=== PATIENT | male | born 1970 | race Caucasian/White ===

== ENCOUNTER 2021-07-19 18:47 | Inpatient (IN) ==
[2021-07-19 19:14] LABS: Basophils # 0.1 K/mcL (0.0-0.2); Basophils % 0.4 %; Eosinophils % 0.3 %; Hematocrit 44.9 % (37.5-50.1); Hemoglobin 15.2 g/dL (12.9-16.9); Immature Granulocytes % 2.8 % (0-4); Lymphocytes % 7.5 %; Mean Corpuscular HGB Conc 33.9 g/dL (31.6-35.5); Mean Corpuscular Hemoglobin 28.6 pg (28.0-33.3); Mean Corpuscular Volume 84.4 fL (83.0-100.0); Monocytes # 0.8 K/mcL (0.0-1.3); Monocytes % 6.6 %; Neutrophils # 10.5 K/mcL (1.6-8.9); Platelet Count 354 K/mcL (140-400); Red Blood Count 5.32 M/mcL (4.19-5.50); Red Cell Distribution Width 12.1 % (11.5-14.5); Segmented Neutrophils % 82.4 %; White Blood Count 12.7 K/mcL (4.3-11.1)
[2021-07-19 19:35] LABS: BUN/Creatinine Ratio 14 (6-26); Blood Urea Nitrogen 12 mg/dL (6-20); Calcium 9.2 mg/dL (8.6-10.3); Carbon Dioxide 29 mEq/L (23-29); Chloride 97 mEq/L (98-107); Glucose 165 mg/dL (70-105); Osmolality,Calculated 281 (280-300); Potassium 3.7 mEq/L (3.5-5.1); Sodium 134 mEq/L (136-145); Troponin I < 0.03 ng/mL (< 0.04); eGFR For African Americans > 60 (> 60); eGFR For Non-African Americans > 60 (> 60)
[2021-07-19] MEDS ORDERED: Isovue-370 500 ML BOTTLE IVP ONE (22:15)
[2021-07-19] MEDS ORDERED: Acetaminophen 325 MG TABLET PO PRN (22:17)
[2021-07-19] MEDS ORDERED: Naloxone 0.4 MG/ML INJ IVP PRN (22:17)
[2021-07-19] MEDS ORDERED: Ondansetron 4 MG/2 ML VIAL IVP PRN (22:17)
[2021-07-19 22:55] LABS: Creatine Kinase 71 Units/L (30-223)
[2021-07-20 00:53] LABS: Hematocrit 41.9 % (37.5-50.1); Hemoglobin 14.3 g/dL (12.9-16.9); Mean Corpuscular HGB Conc 34.1 g/dL (31.6-35.5); Mean Corpuscular Hemoglobin 28.5 pg (28.0-33.3); Mean Corpuscular Volume 83.6 fL (83.0-100.0); Mean Platelet Volume 9.1 fL (9.4-12.4); Platelet Count 346 K/mcL (140-400); Red Blood Count 5.01 M/mcL (4.19-5.50); Red Cell Distribution Width 12.2 % (11.5-14.5); White Blood Count 12.6 K/mcL (4.3-11.1)
[2021-07-20 01:14] LABS: BUN/Creatinine Ratio 14 (6-26); Blood Urea Nitrogen 11 mg/dL (6-20); C-Reactive Protein 140 mg/L (Less than 10); Calcium 8.6 mg/dL (8.6-10.3); Carbon Dioxide 25 mEq/L (23-29); Chloride 98 mEq/L (98-107); Glucose 250 mg/dL (70-105); Lactate Dehydrogenase 332 Units/L (140-271); Osmolality,Calculated 282 (280-300); Potassium 4.3 mEq/L (3.5-5.1); Sodium 132 mEq/L (136-145); eGFR For African Americans > 60 (> 60); eGFR For Non-African Americans > 60 (> 60)
[2021-07-20 02:22] LABS: Ferritin 815 ng/mL (20-250)
[2021-07-20] MEDS: *HR* Enoxaparin 40 MG/0.4 ML SYRINGE SQ SCH (05:15)
[2021-07-20] MEDS ORDERED: Ipratropium 1 PUFF INHALER IH ONE (08:04)
[2021-07-20] MEDS ORDERED: Furosemide 20 MG/2 ML VIAL IVP ONE (08:29)
[2021-07-20] MEDS: Ipratropium 1 PUFF INHALER IH SCH ×6 (11:56→23:07)
[2021-07-21 03:14] LABS: Basophils % 0.3 %; Eosinophils % 0.1 %; Hematocrit 42.3 % (37.5-50.1); Hemoglobin 14.5 g/dL (12.9-16.9); Lymphocytes # 0.8 K/mcL (0.6-4.6); Lymphocytes % 6.4 %; Mean Corpuscular HGB Conc 34.3 g/dL (31.6-35.5); Mean Corpuscular Hemoglobin 28.9 pg (28.0-33.3); Mean Corpuscular Volume 84.4 fL (83.0-100.0); Mean Platelet Volume 9.1 fL (9.4-12.4); Monocytes % 8.7 %; Neutrophils # 9.6 K/mcL (1.6-8.9); Platelet Count 423 K/mcL (140-400); Red Blood Count 5.01 M/mcL (4.19-5.50); Segmented Neutrophils % 80.5 %; White Blood Count 11.9 K/mcL (4.3-11.1)
[2021-07-21 03:34] LABS: Alanine Aminotransferase 23 Units/L (7-52); Albumin 3.5 g/dL (3.5-5.7); Alkaline Phosphatase 67 Units/L (34-104); Aspartate Amino Transferase 11 Units/L (13-39); BUN/Creatinine Ratio 22 (6-26); Bilirubin,Total 0.4 mg/dL (0.3-1.0); Blood Urea Nitrogen 19 mg/dL (6-20); C-Reactive Protein 164 mg/L (Less than 10); Calcium 9.4 mg/dL (8.6-10.3); Carbon Dioxide 23 mEq/L (23-29); Chloride 100 mEq/L (98-107); Globulin 3.5 g/dL (2.4-3.5); Glucose 405 mg/dL (70-105); Lactate Dehydrogenase 249 Units/L (140-271); Osmolality,Calculated 295 (280-300); Potassium 4.6 mEq/L (3.5-5.1); Sodium 133 mEq/L (136-145); eGFR For African Americans > 60 (> 60); eGFR For Non-African Americans > 60 (> 60)
[2021-07-21] MEDS: Ipratropium 1 PUFF INHALER IH SCH ×6 (03:54→23:55)
[2021-07-21 03:58] LABS: Ferritin 984 ng/mL (20-250)
[2021-07-21] MEDS: *HR* Enoxaparin 40 MG/0.4 ML SYRINGE SQ SCH (05:14)
[2021-07-21] MEDS ORDERED: Furosemide 20 MG/2 ML VIAL IVP ONE (08:34)
[2021-07-22] MEDS: Ipratropium 1 PUFF INHALER IH SCH ×3 (04:00→12:01)
[2021-07-22] MEDS: *HR* Enoxaparin 40 MG/0.4 ML SYRINGE SQ SCH (05:21)
[2021-07-22 05:26] LABS: Basophils % 0.3 %; Eosinophils # 0.1 K/mcL (0.0-0.6); Eosinophils % 0.8 %; Hematocrit 42.1 % (37.5-50.1); Hemoglobin 14.1 g/dL (12.9-16.9); Immature Granulocytes % 3.3 % (0-4); Lymphocytes % 8.1 %; Mean Corpuscular HGB Conc 33.5 g/dL (31.6-35.5); Mean Corpuscular Hemoglobin 28.1 pg (28.0-33.3); Monocytes # 0.9 K/mcL (0.0-1.3); Monocytes % 7.4 %; Neutrophils # 9.6 K/mcL (1.6-8.9); Platelet Count 409 K/mcL (140-400); Red Blood Count 5.01 M/mcL (4.19-5.50); Segmented Neutrophils % 80.1 %
[2021-07-22 05:46] LABS: BUN/Creatinine Ratio 24 (6-26); Blood Urea Nitrogen 20 mg/dL (6-20); Carbon Dioxide 26 mEq/L (23-29); Chloride 97 mEq/L (98-107); Glucose 410 mg/dL (70-105); Osmolality,Calculated 292 (280-300); Potassium 4.6 mEq/L (3.5-5.1); Sodium 131 mEq/L (136-145); eGFR For African Americans > 60 (> 60); eGFR For Non-African Americans > 60 (> 60)
[2021-07-22 12:36] VITALS: BP 149/87; PULSE 61; TEMP 97.8; O2SAT 94
== END 2021-07-22 15:59 | disposition home or self-care (01) | DRG 177 ==
LOC: 3NENU 18:47 → EMEROOARM 18:47 → 3NENU 07-20 00:14 → SUATTDRO 07-20 09:56
PROVIDERS: ADMIT Student in an Organized Health Care Education/Training Program; ATTEND Internal Medicine